=== PATIENT | male | born 1950 | race African-American/Black ===

== ENCOUNTER 2016-05-05 11:29 | Inpatient (IN) | payer BC, OTHER ==
--- NOTE | ~2016-05-05 | OP ---
Record Of Operation [facility] [address] [place]. [address] NAME: NNACY JONAS : 50 STATUS : ADM IN [facility]#: [id number] AGE: 66 ADM/REG DATE : 05/05/16 MR#: [id number] REPORT SERV DATE: 05/06/16 DICTATED BY: SHAAN JOHNSTON DATE: 05/06/16 REPORT STATUS : Draft TRANSCRIBED BY: MODL DATE: 05/06/16 DATE OF PROCEDURE: 05/05/2016 SURGEON: Shaan Johnston MD TITLE OF OPERATION: Ileal conduit urinary diversion. PREOPERATIVE DIAGNOSES: 1. Urinary retention. 2. Neurogenic bladder. 3. Recurring episodes of sepsis of urinary origin. POSTOPERATIVE DIAGNOSES: 1. Urinary retention. 2. Neurogenic bladder. 3. Recurring episodes of sepsis of urinary origin. INDICATIONS: Mr. Jonsa is a 66-year-old male, who is paraplegic. He has a prior inflatable penile prosthesis, which had a bad infection requiring explantation. He had a urethral involvement. He has an SP tube. He gets chronic infections and has trouble with SP tube changes. He is here for urinary diversion. ANESTHESIA: General. COMPLICATIONS: None. IMPLANTS: 1. A 16-British SP tube as bladder drain. 2. Bilateral 8-British ureteral stents. 3. #19 NUVIA drain. SPECIMENS: None. NARRATIVE: The patient was brought to the operating room, identified by his wristband. General anesthesia was induced, and cefoxitin was given for preoperative antibiotics. He was placed in supine position and prepped and draped in sterile fashion. His urethral Lombardo catheter and SP tube were both removed. A lower midline incision was made from the pubic bone up to the umbilicus. This was deepened with electrocautery through the subcutaneous tissues down to the fascia. This fascia was sharply incised, and the rectus muscle was split in its midline. The abdominal cavity was entered, and the bowel was packed. A Bookwalter retractor was placed. The pelvis was notable for dense scarring and inflammatory changes due to his chronic SP tubes and infections. There was some adherence between the sigmoid colon and the bladder, which was sharply lysed without entering the sigmoid colon. On the left side, the medial umbilical ligament was identified, clipped, and divided. The ureter was dissected free. The distal ureter was clipped, it was marked with a 4-0 chromic suture and divided. Clear urine effluxed from the ureter. The ureter was then lysed Record Of Operation [place] [id number] [facility] [place]. [address] NAME: NANCY JONAS : 50 STATUS : ADM IN PAT#: [id number] AGE: 66 ADM/REG DATE : 05/05/16 MR#: [id number] REPORT SERV DATE: 05/06/16 DICTATED BY: SHAAN JOHNSTON DATE: 05/06/16 REPORT STATUS : Draft TRANSCRIBED BY: MILLY DATE: 05/06/16 approximately to give a sufficient length for the urinary diversion. Similarly, on the right side, the medial umbilical ligament was clipped and divided, the ureter was identified, the distal ureter was clipped with a clip, the ureter was marked with a 4-0 chromic suture and divided. Clear urine effluxed into the field. The ureter was lysed up to the pelvic brim. The ureter was then tunneled beneath the sigmoid mesentery to the right side. At this time, a 15 cm segment of ileum was identified approximately 20 cm from the ileocecal valve. The ileum was divided with a 75 mm VERO stapler proximally and distally. Care was taken to preserve excellent blood supply to the conduit. The bowel was then reanastomosed in a kdzr-nl-szpp fashion using first a 75 mm VERO stapler. 3-0 silk sutures were used to reinforce the staple line. The bowel was then closed with a 60 mm TA stapler. The staple line was buried with interrupted 3-0 Vicryl suture. The mesenteric trap was closed with interrupted 3-0 silk sutures. Next, the distal end of the conduit was opened with Bovie cautery. The conduit was irrigated clear of stool with irrigation. No enteric contents were spilled into the field. Next, the left ureter was identified on the right side of the body as previously placed. It was spatulated. A small hole was made in the base of the butt end of the conduit. The ureter was then anastomosed to the conduit with two running 4-0 Monocryl sutures. Prior to closure of the anastomosis, an 8-British ureteral stent was placed. It was tunneled out the distal end of the conduit. Similarly, on the right side, the ureter was widely spatulated. A small hole was made in the butt end of the conduit, and the suohdpet-ze-lmtfxwe anastomosis was performed with two running 4-0 Monocryl sutures, and 8-British ureteral stent was placed prior to closure of the anastomosis. The conduit was copiously irrigated and found to be completely watertight, there was no leakage of fluid. The premarked stoma site was then grasped with a Mariely grasper, and a circular incision was made through the skin and deepened down to the level of the fascia. A cruciate incision was made in the fascia. The conduit was then tunneled up through the belly of the rectus, out the fascia into the skin. The conduit was matured to the skin in a [place] fashion using 2-0 Vicryl suture. The wounds were copiously irrigated clear with normal saline. There was no ongoing bleeding. The fascia was closed with interrupted 0 Monocryl suture in a xmgrue-al-hxfkr fashion. The wound was again irrigated clear. The skin was stapled shut. A 16-British catheter was placed back into the bladder as a bladder drain. Prior to fascial closure, a #19 NUVIA drain was placed down into the pelvis. A Xeroform gauze and tape dressing was placed. A Biopatch was placed over the drain, which was sutured in place with a 2-0 Prolene suture. There were no complications. AKIL/MILLY Shaan Johnston MD / [id number] CC: Shaan Johnston MD
--- NOTE | ~2016-05-05 | DS ---
Discharge Summary [facility] [address] [place]. [address] NAME: NANCY JONAS : 50 STATUS : DIS IN PAT#: [id number] AGE: 66 ADM/REG DATE : 05/05/16 MR#: [id number] REPORT SERV DATE: 06/14/16 DICTATED BY: SHAAN JOHNSTON DATE: 06/14/16 REPORT STATUS : Draft TRANSCRIBED BY: MODL DATE: 06/14/16 ADMISSION DATE: 05/05/2016 DISCHARGE DATE: 05/26/2016 DISCHARGE DIAGNOSES: 1. Neurogenic bladder. 2. History of infected inflatable penile prosthesis, status post explantation with chronic perineal wounds. 3. History of recurring sepsis after SP tube changes. 4. History of neurogenic bladder and bowel. PROCEDURES: Open ileal conduit urinary diversion. DISCHARGE SUMMARY: Mr. Nancy Jonas is a 66-year-old male with a history of neurogenic bladder and neurogenic bowel. He did have a penile prosthesis placed for erectile dysfunction. This eventually became infected and was explanted by Dr. Contreras. For his neurogenic bladder, he had an SP tube placed. Unfortunately, he did have recurring sepsis with SP tube placement. Due to insurance changes, the patient finally came to me for definitive management. Given his options, he elected for ileal conduit urinary diversion to rid him of all tubes and catheters in his pelvis. On date of admission, the patient underwent the above-mentioned operation. He tolerated the procedure well. There were no complications. Postoperatively, the patient was transferred to the PACU and then to the floor in stable condition. During his operation, decision was made to leave his bladder intact and to not attempt to remove the reservoirs. I did not want his conduit exposed to infected material. His postoperative course was noted for severe abdominal distention and ileus. An NG tube was placed. I obtained a consultation from Dr. Haile Ferreira with General Surgery. He had a small-bowel followthrough which showed no evidence of obstruction. Eventually, he started having bowel movements. His NG tube was removed and his diet was advanced to regular diet. His NUVIA drain and ureteral stents placed during surgery were removed prior to discharge. His narendra were removed prior to discharge. Physical therapy consultations were obtained and recommendations were followed. On the day of discharge, the patient was deemed medically fit for discharge and he was discharged back to his [facility] facility. DISCHARGE INSTRUCTIONS: Please see my preprinted discharge instructions. DISCHARGE MEDICATIONS: Please see the medicine reconciliation work sheet. FOLLOWUP: Please follow up with me in one month. AKIL/MILLY Shaan Johnston MD Discharge Summary [address] [address] NAME: NANCY JONAS : 50 STATUS : DIS IN PAT#: [id number] AGE: 66 ADM/REG DATE : 05/05/16 MR#: [id number] REPORT SERV DATE: 06/14/16 DICTATED BY: SHAAN JOHNSTON DATE: 06/14/16 REPORT STATUS : Draft TRANSCRIBED BY: MILLY DATE: 06/14/16 / [id number] CC: MD Evangelista Seay M.D.
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
[~2016-05-05 11:29] MED LIST: *UNABLE1; *UNABLE2; 8 HOUR650 MG PO; ACIDOPHILU2 PO; ACTOS30 PO; ACULAR OPH; ALAVERT10 MG PO; ALLEGRA PO; ALLEGRA180 PO; ALPHAGAN OPH; ALTA5 PO; AMARYL2 PO; ASAB PO; ASABAYER PO; ASAEC PO; ATV.5 PO; AVANDIA8 MG PO; BISR; BIST PO; C5 PO; CANNOT RECALL MEDS; CHOLESTERO XX; CILOXAN OPH; COMBIGAN OPH OPH; COMBIGAN0.2 MG/0.5 OPH; DAKINS SOLUTION TOP; DESITIN TOP; DIABET2.5 PO; DITRO5 PO; DSS PO; ECONOPRED PL1 % OPH; FERRETTS325 MG PO; FERROUS SULF325 M1 PO; FESO4 PO; FEXOFENADINE60 MG OR; FLONASE NAS; FLONASE NASAL SPRAY NAS; FLORASTOR250 MG PO; FORTAMET500 MG PO; GLUCOPHXR PO; GLUCOPHXR7 PO; GLUCXL2.5 PO; HEPA50006 SC; HYDROCHLOROT12.5 MG OR; HYDROCHLOROT12.5 MG PO; IMOD PO; INSULIN; INSULIN REGULAR SC; IRON325 MG PO; JANTOVEN4 MG PO; JANUVIA100 MG PO; KLOR-CON 88 MEQ PO; L20 PO; L40 PO; LANTUS; LANTUS SC; LEVEMIR SC; LIOR10; LIOR10 PO; LIPITOR10 PO; LISINOPRIL40 MG PO; LOM PO; LOP25 PO; LOPID6 PO; LORTAB10 PO; LOTRIMIN AF21 EX; LYRICA75 PO; MELA3 PO; MELATONIN5 M1 PO; METFORMIN PO; MIRALAXPKT PO; MOMUD PO; MULTI-VIT HP PO; MULTIVIT/MIN PO; NEUR300 PO; NORCO; NORCO1 TA1 PO; NORV10 PO; NOVOLOG; NOVOLOG SC; NYSTOP100000 MG TOP; PEP20 PO; PEPTO BISMOL LIQ1 ML PO; PERCOCET 7.5/321 TAB PO; PREDMILDOP OPH; PRENAVITE PO; PRILO PO; PROTEIN SUPPLEMENT; PROTONIX PO; REM15 PO; SENNA PO; SOLUMEDROL; SOMATAB PO; T PO; TIMOLOL OPH; ULTRAM50 PO; V5 PO; VALIUM10 MG PO; VENELEX; VIB100 PO; ZANTAC 150 PO; ZOCOR20 PO; ZOCOR40 PO; ZOCOR80 MG PO; [UNRECOGNIZED DRUG - OTHER]; [UNRECOGNIZED DRUG - OTHER] PO
[2016-05-05 19:49] LABS: BASOPHILS 0.1 %; BASOPHILS ABSOLUTE 0.02 10/3/uL (0.0-0.16); EOSINOPHILS 0.4 %; EOSINOPHILS ABSOLUTE 0.06 10/3/uL (0.0-0.53); IMMATURE GRANULOCYTES 0.2 %; IMMATURE GRANULOCYTES ABSOLUTE 0.03 10/3/uL (0.0-0.11); LYMPHOCYTES 7.9 %; LYMPHOCYTES ABSOLUTE 1.06 10/3/uL (0.67-4.30); MEAN CORPUS HGB CONC 33.6 g/dL (32.0-36.0); MEAN CORPUSCULAR HEMOGLOB 29.5 pg (26.0-34.0); MEAN CORPUSCULAR VOLUME 87.7 fL (80-100); MEAN PLATELET VOLUME 9.6 fL (9.2-13.0); MONOCYTES 2.7 %; MONOCYTES ABSOLUTE 0.36 10/3/uL (0.21-1.20); NEUTROPHILS 88.7 %; NEUTROPHILS ABSOLUTE 11.91 10/3/uL (2.02-8.40); RBC DISTRIBUTION WIDTH 15.6 % (12.0-16.0); WHITE BLOOD CELLS 13.4 10/3/uL (4.5-10.5)
[2016-05-05 19:54] LABS: CALCIUM, SERUM 8.6 MG/DL (8.5-10.4); CHLORIDE, SERUM 107 MMOL/L (96-112); CO2 (CARBON DIOXIDE) 21 MMOL/L (24-34); HEMATOCRIT 34.2 % (40.0-51.0); HEMOGLOBIN 11.5 g/dL (13.6-17.8); MANUAL DIFF NO %; PLATELET COUNT 346 10/3/uL (150-400); SODIUM, SERUM 140 MMOL/L (135-148)
[2016-05-05 19:56] LABS: BUN (BLOOD UREA NITROGEN) 21 MG/DL (6-23); CREATININE 1.48 MG/DL (0.70-1.30); GFR AFRICAN AMERICAN 56 ML/MIN (>=60); GFR NON AFRICAN AMERICAN 49 ML/MIN (>=60); GLUCOSE, SERUM 186 MG/DL (60-99)
[2016-05-06 07:45] LABS: BASOPHILS 0.1 %; BASOPHILS ABSOLUTE 0.01 10/3/uL (0.0-0.16); EOSINOPHILS 0 %; HEMOGLOBIN 9.4 g/dL (13.6-17.8); IMMATURE GRANULOCYTES 0.3 %; IMMATURE GRANULOCYTES ABSOLUTE 0.04 10/3/uL (0.0-0.11); LYMPHOCYTES 7.8 %; LYMPHOCYTES ABSOLUTE 1.19 10/3/uL (0.67-4.30); MEAN CORPUS HGB CONC 32.1 g/dL (32.0-36.0); MEAN CORPUSCULAR HEMOGLOB 28.7 pg (26.0-34.0); MEAN CORPUSCULAR VOLUME 89.6 fL (80-100); MEAN PLATELET VOLUME 9.7 fL (9.2-13.0); MONOCYTES 7.4 %; MONOCYTES ABSOLUTE 1.12 10/3/uL (0.21-1.20); NEUTROPHILS 84.4 %; NEUTROPHILS ABSOLUTE 12.85 10/3/uL (2.02-8.40); PLATELET COUNT 305 10/3/uL (150-400); RBC DISTRIBUTION WIDTH 15.7 % (12.0-16.0); RED CELL COUNT 3.27 10/6/uL (4.7-6.1); WHITE BLOOD CELLS 15.2 10/3/uL (4.5-10.5)
[2016-05-06 07:48] LABS: HEMATOCRIT 29.3 % (40.0-51.0); MANUAL DIFF NO %
[2016-05-06 07:49] LABS: BUN (BLOOD UREA NITROGEN) 19 MG/DL (6-23); CALCIUM, SERUM 8.4 MG/DL (8.5-10.4); CHLORIDE, SERUM 105 MMOL/L (96-112); CO2 (CARBON DIOXIDE) 23 MMOL/L (24-34); CREATININE 1.02 MG/DL (0.70-1.30); GFR AFRICAN AMERICAN 88 ML/MIN (>=60); GFR NON AFRICAN AMERICAN 76 ML/MIN (>=60); GLUCOSE, SERUM 164 MG/DL (60-99); POTASSIUM, SERUM 4.4 MMOL/L (3.5-5.3); SODIUM, SERUM 141 MMOL/L (135-148)
[2016-05-07 06:13] LABS: BASOPHILS 0.3 %; BASOPHILS ABSOLUTE 0.03 10/3/uL (0.0-0.16); HEMOGLOBIN 8.3 g/dL (13.6-17.8); IMMATURE GRANULOCYTES 0.1 %; IMMATURE GRANULOCYTES ABSOLUTE 0.01 10/3/uL (0.0-0.11); LYMPHOCYTES 22.4 %; LYMPHOCYTES ABSOLUTE 2.16 10/3/uL (0.67-4.30); MEAN CORPUS HGB CONC 32.5 g/dL (32.0-36.0); MEAN CORPUSCULAR VOLUME 89.2 fL (80-100); MEAN PLATELET VOLUME 9.4 fL (9.2-13.0); MONOCYTES 7.7 %; MONOCYTES ABSOLUTE 0.74 10/3/uL (0.21-1.20); NEUTROPHILS 68.5 %; NEUTROPHILS ABSOLUTE 6.59 10/3/uL (2.02-8.40); PLATELET COUNT 268 10/3/uL (150-400); RBC DISTRIBUTION WIDTH 15.9 % (12.0-16.0); RED CELL COUNT 2.86 10/6/uL (4.7-6.1); WHITE BLOOD CELLS 9.6 10/3/uL (4.5-10.5)
[2016-05-07 06:16] LABS: HEMATOCRIT 25.5 % (40.0-51.0); MANUAL DIFF NO %
[2016-05-07 06:30] LABS: CALCIUM, SERUM 8.5 MG/DL (8.5-10.4); CHLORIDE, SERUM 104 MMOL/L (96-112); CO2 (CARBON DIOXIDE) 21 MMOL/L (24-34); CREATININE 0.66 MG/DL (0.70-1.30); GFR AFRICAN AMERICAN 117 ML/MIN (>=60); GFR NON AFRICAN AMERICAN 101 ML/MIN (>=60); POTASSIUM, SERUM 4.5 MMOL/L (3.5-5.3); SODIUM, SERUM 137 MMOL/L (135-148)
[2016-05-07 06:31] LABS: BUN (BLOOD UREA NITROGEN) 15 MG/DL (6-23); GLUCOSE, SERUM 122 MG/DL (60-99)
[2016-05-09 07:24] LABS: BASOPHILS 0.2 %; BASOPHILS ABSOLUTE 0.03 10/3/uL (0.0-0.16); EOSINOPHILS 1.3 %; EOSINOPHILS ABSOLUTE 0.17 10/3/uL (0.0-0.53); IMMATURE GRANULOCYTES 0.4 %; IMMATURE GRANULOCYTES ABSOLUTE 0.05 10/3/uL (0.0-0.11); LYMPHOCYTES 18.6 %; LYMPHOCYTES ABSOLUTE 2.37 10/3/uL (0.67-4.30); MEAN CORPUS HGB CONC 33.1 g/dL (32.0-36.0); MEAN CORPUSCULAR VOLUME 87.5 fL (80-100); MEAN PLATELET VOLUME 9.7 fL (9.2-13.0); MONOCYTES ABSOLUTE 0.76 10/3/uL (0.21-1.20); NEUTROPHILS 73.5 %; NEUTROPHILS ABSOLUTE 9.35 10/3/uL (2.02-8.40); RBC DISTRIBUTION WIDTH 15.4 % (12.0-16.0); WHITE BLOOD CELLS 12.7 10/3/uL (4.5-10.5)
[2016-05-09 07:30] LABS: HEMATOCRIT 30.2 % (40.0-51.0); MANUAL DIFF NO %; PLATELET COUNT 389 10/3/uL (150-400); RED CELL COUNT 3.45 10/6/uL (4.7-6.1)
[2016-05-09 07:53] LABS: CALCIUM, SERUM 9.2 MG/DL (8.5-10.4); CHLORIDE, SERUM 101 MMOL/L (96-112); CO2 (CARBON DIOXIDE) 21 MMOL/L (24-34); POTASSIUM, SERUM 4.8 MMOL/L (3.5-5.3); SODIUM, SERUM 135 MMOL/L (135-148)
[2016-05-09 07:54] LABS: BUN (BLOOD UREA NITROGEN) 22 MG/DL (6-23); CREATININE 1.41 MG/DL (0.70-1.30); GFR AFRICAN AMERICAN 60 ML/MIN (>=60); GFR NON AFRICAN AMERICAN 52 ML/MIN (>=60); GLUCOSE, SERUM 151 MG/DL (60-99)
[2016-05-10 06:41] LABS: CHLORIDE, SERUM 106 MMOL/L (96-112); CO2 (CARBON DIOXIDE) 20 MMOL/L (24-34); POTASSIUM, SERUM 4.5 MMOL/L (3.5-5.3); SODIUM, SERUM 137 MMOL/L (135-148)
[2016-05-10 06:42] LABS: BUN (BLOOD UREA NITROGEN) 17 MG/DL (6-23); CALCIUM, SERUM 8.1 MG/DL (8.5-10.4); CREATININE 0.65 MG/DL (0.70-1.30); GFR AFRICAN AMERICAN 118 ML/MIN (>=60); GFR NON AFRICAN AMERICAN 101 ML/MIN (>=60); GLUCOSE, SERUM 114 MG/DL (60-99)
[2016-05-10 07:06] LABS: PLATELET ESTIMATE SLT INC (ADEQUATE); RBC MORPHOLOGY NORM (NORMAL)
[2016-05-10 07:22] LABS: BASOPHILS 0.4 %; BASOPHILS ABSOLUTE 0.04 10/3/uL (0.0-0.16); EOSINOPHILS 3.9 %; EOSINOPHILS ABSOLUTE 0.41 10/3/uL (0.0-0.53); HEMATOCRIT 27.6 % (40.0-51.0); HEMOGLOBIN 9.1 g/dL (13.6-17.8); IMMATURE GRANULOCYTES 0.3 %; IMMATURE GRANULOCYTES ABSOLUTE 0.03 10/3/uL (0.0-0.11); LYMPHOCYTES 19.8 %; LYMPHOCYTES ABSOLUTE 2.07 10/3/uL (0.67-4.30); MANUAL DIFF NO %; MEAN CORPUSCULAR HEMOGLOB 29.5 pg (26.0-34.0); MEAN CORPUSCULAR VOLUME 89.6 fL (80-100); MEAN PLATELET VOLUME 9.2 fL (9.2-13.0); MONOCYTES ABSOLUTE 0.63 10/3/uL (0.21-1.20); NEUTROPHILS 69.6 %; NEUTROPHILS ABSOLUTE 7.26 10/3/uL (2.02-8.40); PLATELET COUNT 404 10/3/uL (150-400); RBC DISTRIBUTION WIDTH 15.3 % (12.0-16.0); RED CELL COUNT 3.08 10/6/uL (4.7-6.1); WHITE BLOOD CELLS 10.4 10/3/uL (4.5-10.5)
[2016-05-11 07:15] LABS: BASOPHILS 0.7 %; BASOPHILS ABSOLUTE 0.08 10/3/uL (0.0-0.16); EOSINOPHILS 2.9 %; EOSINOPHILS ABSOLUTE 0.33 10/3/uL (0.0-0.53); HEMATOCRIT 30.3 % (40.0-51.0); HEMOGLOBIN 9.8 g/dL (13.6-17.8); IMMATURE GRANULOCYTES 0.3 %; IMMATURE GRANULOCYTES ABSOLUTE 0.03 10/3/uL (0.0-0.11); LYMPHOCYTES 17.2 %; LYMPHOCYTES ABSOLUTE 1.94 10/3/uL (0.67-4.30); MANUAL DIFF NO %; MEAN CORPUS HGB CONC 32.3 g/dL (32.0-36.0); MEAN CORPUSCULAR HEMOGLOB 29.5 pg (26.0-34.0); MEAN CORPUSCULAR VOLUME 91.3 fL (80-100); MEAN PLATELET VOLUME 8.9 fL (9.2-13.0); MONOCYTES 4.2 %; MONOCYTES ABSOLUTE 0.47 10/3/uL (0.21-1.20); NEUTROPHILS 74.7 %; NEUTROPHILS ABSOLUTE 8.46 10/3/uL (2.02-8.40); PLATELET COUNT 429 10/3/uL (150-400); RBC DISTRIBUTION WIDTH 15.1 % (12.0-16.0); RED CELL COUNT 3.32 10/6/uL (4.7-6.1); WHITE BLOOD CELLS 11.3 10/3/uL (4.5-10.5)
[2016-05-11 07:28] LABS: BUN (BLOOD UREA NITROGEN) 14 MG/DL (6-23); CALCIUM, SERUM 8.9 MG/DL (8.5-10.4); CHLORIDE, SERUM 106 MMOL/L (96-112); CO2 (CARBON DIOXIDE) 17 MMOL/L (24-34); CREATININE 0.57 MG/DL (0.70-1.30); GFR AFRICAN AMERICAN 124 ML/MIN (>=60); GFR NON AFRICAN AMERICAN 107 ML/MIN (>=60); GLUCOSE, SERUM 89 MG/DL (60-99); POTASSIUM, SERUM 4.3 MMOL/L (3.5-5.3); SODIUM, SERUM 139 MMOL/L (135-148)
[2016-05-12 06:55] LABS: BASOPHILS 0.7 %; BASOPHILS ABSOLUTE 0.06 10/3/uL (0.0-0.16); EOSINOPHILS 4.8 %; EOSINOPHILS ABSOLUTE 0.44 10/3/uL (0.0-0.53); HEMATOCRIT 30.5 % (40.0-51.0); HEMOGLOBIN 9.8 g/dL (13.6-17.8); IMMATURE GRANULOCYTES 0.2 %; IMMATURE GRANULOCYTES ABSOLUTE 0.02 10/3/uL (0.0-0.11); LYMPHOCYTES 25.4 %; LYMPHOCYTES ABSOLUTE 2.32 10/3/uL (0.67-4.30); MEAN CORPUS HGB CONC 32.1 g/dL (32.0-36.0); MEAN CORPUSCULAR HEMOGLOB 28.9 pg (26.0-34.0); MONOCYTES 6.3 %; MONOCYTES ABSOLUTE 0.57 10/3/uL (0.21-1.20); NEUTROPHILS 62.6 %; NEUTROPHILS ABSOLUTE 5.71 10/3/uL (2.02-8.40); PLATELET COUNT 435 10/3/uL (150-400); RBC DISTRIBUTION WIDTH 14.9 % (12.0-16.0); RED CELL COUNT 3.39 10/6/uL (4.7-6.1); WHITE BLOOD CELLS 9.1 10/3/uL (4.5-10.5)
[2016-05-12 06:57] LABS: MANUAL DIFF NO %
[2016-05-12 07:07] LABS: CHLORIDE, SERUM 104 MMOL/L (96-112); CO2 (CARBON DIOXIDE) 20 MMOL/L (24-34); CREATININE 0.57 MG/DL (0.70-1.30); GFR AFRICAN AMERICAN 124 ML/MIN (>=60); GFR NON AFRICAN AMERICAN 107 ML/MIN (>=60); GLUCOSE, SERUM 98 MG/DL (60-99); POTASSIUM, SERUM 4.2 MMOL/L (3.5-5.3); SODIUM, SERUM 136 MMOL/L (135-148)
[2016-05-12 07:09] LABS: BUN (BLOOD UREA NITROGEN) 10 MG/DL (6-23)
[2016-05-13 07:46] LABS: BASOPHILS 0.3 %; BASOPHILS ABSOLUTE 0.03 10/3/uL (0.0-0.16); BUN (BLOOD UREA NITROGEN) 13 MG/DL (6-23); CALCIUM, SERUM 8.7 MG/DL (8.5-10.4); CHLORIDE, SERUM 102 MMOL/L (96-112); CO2 (CARBON DIOXIDE) 22 MMOL/L (24-34); CREATININE 0.55 MG/DL (0.70-1.30); EOSINOPHILS 2.4 %; EOSINOPHILS ABSOLUTE 0.23 10/3/uL (0.0-0.53); GFR AFRICAN AMERICAN 126 ML/MIN (>=60); GFR NON AFRICAN AMERICAN 109 ML/MIN (>=60); GLUCOSE, SERUM 99 MG/DL (60-99); HEMATOCRIT 27.8 % (40.0-51.0); HEMOGLOBIN 9.1 g/dL (13.6-17.8); IMMATURE GRANULOCYTES 0.3 %; IMMATURE GRANULOCYTES ABSOLUTE 0.03 10/3/uL (0.0-0.11); LYMPHOCYTES 24.7 %; LYMPHOCYTES ABSOLUTE 2.39 10/3/uL (0.67-4.30); MEAN CORPUS HGB CONC 32.7 g/dL (32.0-36.0); MEAN CORPUSCULAR HEMOGLOB 28.3 pg (26.0-34.0); MEAN PLATELET VOLUME 9.5 fL (9.2-13.0); MONOCYTES 6.3 %; MONOCYTES ABSOLUTE 0.61 10/3/uL (0.21-1.20); NEUTROPHILS ABSOLUTE 6.37 10/3/uL (2.02-8.40); PLATELET COUNT 502 10/3/uL (150-400); RBC DISTRIBUTION WIDTH 14.9 % (12.0-16.0); RED CELL COUNT 3.21 10/6/uL (4.7-6.1); SODIUM, SERUM 137 MMOL/L (135-148); WHITE BLOOD CELLS 9.7 10/3/uL (4.5-10.5)
[2016-05-13 07:47] LABS: MANUAL DIFF NO %; MEAN CORPUSCULAR VOLUME 86.6 fL (80-100)
[2016-05-16 06:26] LABS: BASOPHILS 0.6 %; BASOPHILS ABSOLUTE 0.05 10/3/uL (0.0-0.16); EOSINOPHILS 3.3 %; EOSINOPHILS ABSOLUTE 0.26 10/3/uL (0.0-0.53); HEMOGLOBIN 9.5 g/dL (13.6-17.8); IMMATURE GRANULOCYTES 0.3 %; IMMATURE GRANULOCYTES ABSOLUTE 0.02 10/3/uL (0.0-0.11); LYMPHOCYTES 24.4 %; MEAN CORPUS HGB CONC 31.7 g/dL (32.0-36.0); MEAN CORPUSCULAR HEMOGLOB 28.6 pg (26.0-34.0); MEAN PLATELET VOLUME 9.5 fL (9.2-13.0); NEUTROPHILS 62.4 %; NEUTROPHILS ABSOLUTE 4.85 10/3/uL (2.02-8.40); PLATELET COUNT 415 10/3/uL (150-400); RED CELL COUNT 3.32 10/6/uL (4.7-6.1); WHITE BLOOD CELLS 7.8 10/3/uL (4.5-10.5)
[2016-05-16 06:29] LABS: MANUAL DIFF NO %; MEAN CORPUSCULAR VOLUME 90.4 fL (80-100)
[2016-05-16 06:48] LABS: BUN (BLOOD UREA NITROGEN) 24 MG/DL (6-23); CALCIUM, SERUM 8.9 MG/DL (8.5-10.4); CHLORIDE, SERUM 103 MMOL/L (96-112); CO2 (CARBON DIOXIDE) 16 MMOL/L (24-34); CREATININE 0.94 MG/DL (0.70-1.30); GFR AFRICAN AMERICAN 98 ML/MIN (>=60); GFR NON AFRICAN AMERICAN 84 ML/MIN (>=60); GLUCOSE, SERUM 113 MG/DL (60-99); POTASSIUM, SERUM 4.3 MMOL/L (3.5-5.3); SODIUM, SERUM 134 MMOL/L (135-148)
[2016-05-16 12:56] LABS: BUN (BLOOD UREA NITROGEN) 25 MG/DL (6-23); CALCIUM, SERUM 8.9 MG/DL (8.5-10.4); CHLORIDE, SERUM 101 MMOL/L (96-112); CREATININE 1.09 MG/DL (0.70-1.30); GFR AFRICAN AMERICAN 82 ML/MIN (>=60); GFR NON AFRICAN AMERICAN 70 ML/MIN (>=60); GLUCOSE, SERUM 100 MG/DL (60-99); POTASSIUM, SERUM 4.4 MMOL/L (3.5-5.3); SODIUM, SERUM 135 MMOL/L (135-148)
[2016-05-16 12:57] LABS: CO2 (CARBON DIOXIDE) 26 MMOL/L (24-34)
[2016-05-17 09:00] LABS: BASOPHILS 0.3 %; BASOPHILS ABSOLUTE 0.03 10/3/uL (0.0-0.16); EOSINOPHILS 1.7 %; EOSINOPHILS ABSOLUTE 0.17 10/3/uL (0.0-0.53); HEMATOCRIT 30.6 % (40.0-51.0); IMMATURE GRANULOCYTES 0.2 %; IMMATURE GRANULOCYTES ABSOLUTE 0.02 10/3/uL (0.0-0.11); LYMPHOCYTES 16.2 %; LYMPHOCYTES ABSOLUTE 1.66 10/3/uL (0.67-4.30); MANUAL DIFF NO %; MEAN CORPUS HGB CONC 32.7 g/dL (32.0-36.0); MEAN CORPUSCULAR HEMOGLOB 28.5 pg (26.0-34.0); MEAN CORPUSCULAR VOLUME 87.2 fL (80-100); MEAN PLATELET VOLUME 9.3 fL (9.2-13.0); MONOCYTES 8.3 %; MONOCYTES ABSOLUTE 0.85 10/3/uL (0.21-1.20); NEUTROPHILS 73.3 %; NEUTROPHILS ABSOLUTE 7.54 10/3/uL (2.02-8.40); PLATELET COUNT 529 10/3/uL (150-400); RBC DISTRIBUTION WIDTH 14.8 % (12.0-16.0); RED CELL COUNT 3.51 10/6/uL (4.7-6.1); WHITE BLOOD CELLS 10.3 10/3/uL (4.5-10.5)
[2016-05-17 09:15] LABS: BUN (BLOOD UREA NITROGEN) 23 MG/DL (6-23); CALCIUM, SERUM 8.2 MG/DL (8.5-10.4); CHLORIDE, SERUM 106 MMOL/L (96-112); CREATININE 0.94 MG/DL (0.70-1.30); GFR AFRICAN AMERICAN 98 ML/MIN (>=60); GFR NON AFRICAN AMERICAN 84 ML/MIN (>=60); GLUCOSE, SERUM 85 MG/DL (60-99); PHOSPHORUS, SERUM 2.7 MG/DL (2.5-4.5); POTASSIUM, SERUM 4.4 MMOL/L (3.5-5.3); SODIUM, SERUM 139 MMOL/L (135-148)
[2016-05-17 09:16] LABS: CO2 (CARBON DIOXIDE) 21 MMOL/L (24-34)
[2016-05-18 04:58] LABS: BASOPHILS 0.3 %; BASOPHILS ABSOLUTE 0.03 10/3/uL (0.0-0.16); EOSINOPHILS 0.9 %; EOSINOPHILS ABSOLUTE 0.09 10/3/uL (0.0-0.53); HEMOGLOBIN 8.4 g/dL (13.6-17.8); IMMATURE GRANULOCYTES 0.3 %; IMMATURE GRANULOCYTES ABSOLUTE 0.03 10/3/uL (0.0-0.11); LYMPHOCYTES 17.6 %; LYMPHOCYTES ABSOLUTE 1.86 10/3/uL (0.67-4.30); MEAN CORPUS HGB CONC 33.2 g/dL (32.0-36.0); MEAN CORPUSCULAR HEMOGLOB 29.4 pg (26.0-34.0); MEAN CORPUSCULAR VOLUME 88.5 fL (80-100); MEAN PLATELET VOLUME 9.1 fL (9.2-13.0); MONOCYTES ABSOLUTE 0.95 10/3/uL (0.21-1.20); NEUTROPHILS 71.9 %; NEUTROPHILS ABSOLUTE 7.58 10/3/uL (2.02-8.40); PLATELET COUNT 471 10/3/uL (150-400); RBC DISTRIBUTION WIDTH 14.7 % (12.0-16.0); RED CELL COUNT 2.86 10/6/uL (4.7-6.1); WHITE BLOOD CELLS 10.5 10/3/uL (4.5-10.5)
[2016-05-18 05:01] LABS: HEMATOCRIT 25.3 % (40.0-51.0); MANUAL DIFF NO %
[2016-05-18 05:12] LABS: BUN (BLOOD UREA NITROGEN) 22 MG/DL (6-23); CHLORIDE, SERUM 107 MMOL/L (96-112); CO2 (CARBON DIOXIDE) 21 MMOL/L (24-34); CREATININE 0.73 MG/DL (0.70-1.30); GFR AFRICAN AMERICAN 112 ML/MIN (>=60); GFR NON AFRICAN AMERICAN 97 ML/MIN (>=60); PHOSPHORUS, SERUM 2.6 MG/DL (2.5-4.5); POTASSIUM, SERUM 3.8 MMOL/L (3.5-5.3); SODIUM, SERUM 140 MMOL/L (135-148); TRIGLYCERIDE 71 MG/DL (< 150)
[2016-05-18 05:14] LABS: GLUCOSE, SERUM 130 MG/DL (60-99)
[2016-05-18 05:32] LABS: PREALBUMIN 7.8 MG/DL (17.0-43.0)
[2016-05-19 06:52] LABS: BASOPHILS 0.2 %; BASOPHILS ABSOLUTE 0.02 10/3/uL (0.0-0.16); EOSINOPHILS 2.4 %; EOSINOPHILS ABSOLUTE 0.25 10/3/uL (0.0-0.53); HEMATOCRIT 24.2 % (40.0-51.0); HEMOGLOBIN 7.9 g/dL (13.6-17.8); IMMATURE GRANULOCYTES 0.2 %; IMMATURE GRANULOCYTES ABSOLUTE 0.02 10/3/uL (0.0-0.11); LYMPHOCYTES 19.7 %; LYMPHOCYTES ABSOLUTE 2.05 10/3/uL (0.67-4.30); MEAN CORPUS HGB CONC 32.6 g/dL (32.0-36.0); MEAN PLATELET VOLUME 9.2 fL (9.2-13.0); MONOCYTES 11.1 %; MONOCYTES ABSOLUTE 1.15 10/3/uL (0.21-1.20); NEUTROPHILS 66.4 %; NEUTROPHILS ABSOLUTE 6.91 10/3/uL (2.02-8.40); PLATELET COUNT 469 10/3/uL (150-400); RBC DISTRIBUTION WIDTH 14.7 % (12.0-16.0); RED CELL COUNT 2.82 10/6/uL (4.7-6.1); WHITE BLOOD CELLS 10.4 10/3/uL (4.5-10.5)
[2016-05-19 06:53] LABS: MANUAL DIFF NO %; MEAN CORPUSCULAR VOLUME 85.8 fL (80-100)
[2016-05-19 06:57] LABS: CALCIUM, SERUM 8.2 MG/DL (8.5-10.4); CHLORIDE, SERUM 105 MMOL/L (96-112); CO2 (CARBON DIOXIDE) 24 MMOL/L (24-34); CREATININE 0.76 MG/DL (0.70-1.30); GFR AFRICAN AMERICAN 110 ML/MIN (>=60); GFR NON AFRICAN AMERICAN 95 ML/MIN (>=60); PHOSPHORUS, SERUM 2.1 MG/DL (2.5-4.5); POTASSIUM, SERUM 3.8 MMOL/L (3.5-5.3); SODIUM, SERUM 139 MMOL/L (135-148)
[2016-05-19 07:01] LABS: BUN (BLOOD UREA NITROGEN) 28 MG/DL (6-23); GLUCOSE, SERUM 184 MG/DL (60-99)
[2016-05-20 06:38] LABS: BASOPHILS 0.6 %; BASOPHILS ABSOLUTE 0.06 10/3/uL (0.0-0.16); EOSINOPHILS ABSOLUTE 0.38 10/3/uL (0.0-0.53); HEMATOCRIT 26.3 % (40.0-51.0); HEMOGLOBIN 8.7 g/dL (13.6-17.8); IMMATURE GRANULOCYTES 0.3 %; IMMATURE GRANULOCYTES ABSOLUTE 0.03 10/3/uL (0.0-0.11); LYMPHOCYTES 20.7 %; LYMPHOCYTES ABSOLUTE 1.95 10/3/uL (0.67-4.30); MEAN CORPUS HGB CONC 33.1 g/dL (32.0-36.0); MEAN CORPUSCULAR HEMOGLOB 29.4 pg (26.0-34.0); MONOCYTES 9.8 %; MONOCYTES ABSOLUTE 0.92 10/3/uL (0.21-1.20); NEUTROPHILS 64.6 %; NEUTROPHILS ABSOLUTE 6.06 10/3/uL (2.02-8.40); PLATELET COUNT 485 10/3/uL (150-400); RBC DISTRIBUTION WIDTH 14.9 % (12.0-16.0); RED CELL COUNT 2.96 10/6/uL (4.7-6.1); WHITE BLOOD CELLS 9.4 10/3/uL (4.5-10.5)
[2016-05-20 06:39] LABS: MANUAL DIFF NO %; MEAN CORPUSCULAR VOLUME 88.9 fL (80-100)
[2016-05-20 06:50] LABS: BUN (BLOOD UREA NITROGEN) 30 MG/DL (6-23); CALCIUM, SERUM 8.2 MG/DL (8.5-10.4); CHLORIDE, SERUM 109 MMOL/L (96-112); CO2 (CARBON DIOXIDE) 23 MMOL/L (24-34); CREATININE 0.76 MG/DL (0.70-1.30); GFR AFRICAN AMERICAN 110 ML/MIN (>=60); GFR NON AFRICAN AMERICAN 95 ML/MIN (>=60); GLUCOSE, SERUM 211 MG/DL (60-99); POTASSIUM, SERUM 4.4 MMOL/L (3.5-5.3); SODIUM, SERUM 142 MMOL/L (135-148)
[2016-05-21 04:42] LABS: BUN (BLOOD UREA NITROGEN) 30 MG/DL (6-23); CALCIUM, SERUM 8.7 MG/DL (8.5-10.4); CHLORIDE, SERUM 111 MMOL/L (96-112); CO2 (CARBON DIOXIDE) 22 MMOL/L (24-34); CREATININE 0.77 MG/DL (0.70-1.30); GFR AFRICAN AMERICAN 110 ML/MIN (>=60); GFR NON AFRICAN AMERICAN 95 ML/MIN (>=60); GLUCOSE, SERUM 215 MG/DL (60-99); PHOSPHORUS, SERUM 2.4 MG/DL (2.5-4.5); POTASSIUM, SERUM 4.4 MMOL/L (3.5-5.3); SODIUM, SERUM 143 MMOL/L (135-148)
[2016-05-22 06:32] LABS: CALCIUM, SERUM 9.2 MG/DL (8.5-10.4); CHLORIDE, SERUM 112 MMOL/L (96-112); CO2 (CARBON DIOXIDE) 23 MMOL/L (24-34); CREATININE 0.85 MG/DL (0.70-1.30); GFR AFRICAN AMERICAN 105 ML/MIN (>=60); GFR NON AFRICAN AMERICAN 91 ML/MIN (>=60); POTASSIUM, SERUM 4.3 MMOL/L (3.5-5.3); SODIUM, SERUM 145 MMOL/L (135-148)
[2016-05-22 06:35] LABS: BUN (BLOOD UREA NITROGEN) 39 MG/DL (6-23); GLUCOSE, SERUM 271 MG/DL (60-99); PHOSPHORUS, SERUM 3.3 MG/DL (2.5-4.5)
[2016-05-23 06:30] LABS: BASOPHILS 0.5 %; BASOPHILS ABSOLUTE 0.06 10/3/uL (0.0-0.16); EOSINOPHILS 4.5 %; EOSINOPHILS ABSOLUTE 0.57 10/3/uL (0.0-0.53); HEMATOCRIT 26.5 % (40.0-51.0); HEMOGLOBIN 8.3 g/dL (13.6-17.8); IMMATURE GRANULOCYTES 1.6 %; IMMATURE GRANULOCYTES ABSOLUTE 0.21 10/3/uL (0.0-0.11); LYMPHOCYTES 19.8 %; LYMPHOCYTES ABSOLUTE 2.52 10/3/uL (0.67-4.30); MEAN CORPUSCULAR HEMOGLOB 28.4 pg (26.0-34.0); MEAN CORPUSCULAR VOLUME 90.8 fL (80-100); MEAN PLATELET VOLUME 9.3 fL (9.2-13.0); MONOCYTES 7.5 %; MONOCYTES ABSOLUTE 0.95 10/3/uL (0.21-1.20); NEUTROPHILS 66.1 %; NEUTROPHILS ABSOLUTE 8.43 10/3/uL (2.02-8.40); PLATELET COUNT 547 10/3/uL (150-400); RBC DISTRIBUTION WIDTH 15.6 % (12.0-16.0); RED CELL COUNT 2.92 10/6/uL (4.7-6.1); WHITE BLOOD CELLS 12.7 10/3/uL (4.5-10.5)
[2016-05-23 06:31] LABS: MANUAL DIFF NO %; MEAN CORPUS HGB CONC 31.3 g/dL (32.0-36.0)
[2016-05-23 06:40] LABS: CHLORIDE, SERUM 112 MMOL/L (96-112); CO2 (CARBON DIOXIDE) 22 MMOL/L (24-34); CREATININE 0.92 MG/DL (0.70-1.30); GFR AFRICAN AMERICAN 100 ML/MIN (>=60); GFR NON AFRICAN AMERICAN 86 ML/MIN (>=60); GLUCOSE, SERUM 320 MG/DL (60-99); PHOSPHORUS, SERUM 2.8 MG/DL (2.5-4.5); POTASSIUM, SERUM 4.1 MMOL/L (3.5-5.3); SODIUM, SERUM 144 MMOL/L (135-148)
[2016-05-23 06:42] LABS: BUN (BLOOD UREA NITROGEN) 45 MG/DL (6-23)
[2016-05-23 10:40] LABS: ASCORBIC ACID (UR NOT ORDER) NEG (NEG); BILIRUBIN, URINE NEGATIVE (NEG); KETONE, URINE NEGATIVE (NEG); LEUKOCYTE ESTERASE(NOT OR LARGE (NEG); WBC (NOT ORDERED) (RFLEX) > 182 (0-5)
[2016-05-24 06:30] LABS: BASOPHILS 0.8 %; BASOPHILS ABSOLUTE 0.11 10/3/uL (0.0-0.16); EOSINOPHILS 4.4 %; EOSINOPHILS ABSOLUTE 0.58 10/3/uL (0.0-0.53); HEMATOCRIT 26.8 % (40.0-51.0); HEMOGLOBIN 8.6 g/dL (13.6-17.8); IMMATURE GRANULOCYTES 1.5 %; LYMPHOCYTES 26.4 %; MEAN CORPUS HGB CONC 32.1 g/dL (32.0-36.0); MEAN CORPUSCULAR VOLUME 90.2 fL (80-100); MEAN PLATELET VOLUME 9.6 fL (9.2-13.0); MONOCYTES 5.3 %; NEUTROPHILS 61.6 %; NEUTROPHILS ABSOLUTE 8.16 10/3/uL (2.02-8.40); PLATELET COUNT 554 10/3/uL (150-400); RBC DISTRIBUTION WIDTH 15.2 % (12.0-16.0); RED CELL COUNT 2.97 10/6/uL (4.7-6.1); WHITE BLOOD CELLS 13.3 10/3/uL (4.5-10.5)
[2016-05-24 06:31] LABS: MANUAL DIFF NO %
[2016-05-24 06:32] LABS: CALCIUM, SERUM 9.1 MG/DL (8.5-10.4); CHLORIDE, SERUM 109 MMOL/L (96-112); CO2 (CARBON DIOXIDE) 21 MMOL/L (24-34); CREATININE 0.78 MG/DL (0.70-1.30); GFR AFRICAN AMERICAN 109 ML/MIN (>=60); GFR NON AFRICAN AMERICAN 94 ML/MIN (>=60); POTASSIUM, SERUM 4.5 MMOL/L (3.5-5.3); SODIUM, SERUM 141 MMOL/L (135-148)
[2016-05-24 06:33] LABS: BUN (BLOOD UREA NITROGEN) 31 MG/DL (6-23); GLUCOSE, SERUM 157 MG/DL (60-99)
[2016-05-25 17:25] LABS: BASOPHILS 0.5 %; BASOPHILS ABSOLUTE 0.07 10/3/uL (0.0-0.16); EOSINOPHILS 3.6 %; HEMATOCRIT 26.4 % (40.0-51.0); HEMOGLOBIN 8.2 g/dL (13.6-17.8); IMMATURE GRANULOCYTES 0.8 %; IMMATURE GRANULOCYTES ABSOLUTE 0.11 10/3/uL (0.0-0.11); LYMPHOCYTES 18.3 %; LYMPHOCYTES ABSOLUTE 2.57 10/3/uL (0.67-4.30); MEAN CORPUS HGB CONC 31.1 g/dL (32.0-36.0); MEAN CORPUSCULAR VOLUME 90.1 fL (80-100); MEAN PLATELET VOLUME 9.9 fL (9.2-13.0); MONOCYTES 4.1 %; MONOCYTES ABSOLUTE 0.57 10/3/uL (0.21-1.20); NEUTROPHILS 72.7 %; PLATELET COUNT 535 10/3/uL (150-400); RBC DISTRIBUTION WIDTH 14.9 % (12.0-16.0); RED CELL COUNT 2.93 10/6/uL (4.7-6.1)
[2016-05-25 17:26] LABS: MANUAL DIFF NO %
[2016-05-25 17:36] LABS: CALCIUM, SERUM 8.6 MG/DL (8.5-10.4); CHLORIDE, SERUM 105 MMOL/L (96-112); CO2 (CARBON DIOXIDE) 23 MMOL/L (24-34); GFR AFRICAN AMERICAN 103 ML/MIN (>=60); GFR NON AFRICAN AMERICAN 89 ML/MIN (>=60); POTASSIUM, SERUM 4.5 MMOL/L (3.5-5.3); SODIUM, SERUM 137 MMOL/L (135-148)
[2016-05-25 17:37] LABS: BUN (BLOOD UREA NITROGEN) 25 MG/DL (6-23); GLUCOSE, SERUM 117 MG/DL (60-99)
[2016-05-26 04:55] LABS: BUN (BLOOD UREA NITROGEN) 27 MG/DL (6-23); CALCIUM, SERUM 8.8 MG/DL (8.5-10.4); CHLORIDE, SERUM 106 MMOL/L (96-112); CO2 (CARBON DIOXIDE) 21 MMOL/L (24-34); CREATININE 0.81 MG/DL (0.70-1.30); GFR AFRICAN AMERICAN 107 ML/MIN (>=60); GFR NON AFRICAN AMERICAN 93 ML/MIN (>=60); POTASSIUM, SERUM 4.6 MMOL/L (3.5-5.3); SODIUM, SERUM 137 MMOL/L (135-148)
[2016-05-26 05:03] LABS: GLUCOSE, SERUM 170 MG/DL (60-99)
[2016-05-26 05:38] LABS: BASOPHILS 0.5 %; BASOPHILS ABSOLUTE 0.08 10/3/uL (0.0-0.16); EOSINOPHILS 3.2 %; EOSINOPHILS ABSOLUTE 0.47 10/3/uL (0.0-0.53); HEMATOCRIT 26.1 % (40.0-51.0); HEMOGLOBIN 8.3 g/dL (13.6-17.8); IMMATURE GRANULOCYTES 1.1 %; IMMATURE GRANULOCYTES ABSOLUTE 0.16 10/3/uL (0.0-0.11); LYMPHOCYTES 19.4 %; LYMPHOCYTES ABSOLUTE 2.83 10/3/uL (0.67-4.30); MEAN CORPUS HGB CONC 31.8 g/dL (32.0-36.0); MEAN CORPUSCULAR HEMOGLOB 28.6 pg (26.0-34.0); MEAN PLATELET VOLUME 10.1 fL (9.2-13.0); MONOCYTES 4.9 %; MONOCYTES ABSOLUTE 0.72 10/3/uL (0.21-1.20); NEUTROPHILS 70.9 %; NEUTROPHILS ABSOLUTE 10.32 10/3/uL (2.02-8.40); PLATELET COUNT 501 10/3/uL (150-400); RBC DISTRIBUTION WIDTH 14.8 % (12.0-16.0); WHITE BLOOD CELLS 14.6 10/3/uL (4.5-10.5)
[2016-05-26 05:44] LABS: MANUAL DIFF NO %
[2016-09-23] MEDS ORDERED: PROSOURCE PO (09:49)
[2016-09-23] MEDS ORDERED: VITC500 PO (09:49)
[2016-09-23] MEDS ORDERED: INSNOVR SC (09:53)
[2016-09-23] MEDS ORDERED: LIOR10 PO (09:54)
[2016-09-23] MEDS ORDERED: PERCOCET 7.5/321 TAB PO (09:54)
[2016-09-23] MEDS ORDERED: PROTONIX PO (09:55)
[2016-09-23] MEDS ORDERED: NEUR300 PO (09:55)
[2016-09-23] MEDS ORDERED: REG5 PO (09:58)
[2016-09-23] MEDS ORDERED: FLONASE NAS (09:59)
[2016-09-23] MEDS ORDERED: TIMOLOL MAL0.5 % OPH (10:00)
[2016-09-23] MEDS ORDERED: FLORASTOR250 MG PO (10:01)
[2016-09-23] MEDS ORDERED: MIRALAX POWDER1 PKT PO (10:01)
[2016-09-23] MEDS ORDERED: PEP20 PO (10:02)
[2016-09-23] MEDS ORDERED: DITRO5 PO (10:02)
[2016-09-23] MEDS ORDERED: BRIMONIDINE0.2 % OPH (10:03)
[2016-09-23] MEDS ORDERED: PRENAVITE PO (10:04)
[2016-09-23] MEDS ORDERED: AYR SALINE NAS (10:05)
[2016-09-23] MEDS ORDERED: MAGOX4 PO (10:06)
[2016-09-23] MEDS ORDERED: REFRESH OPH SO0.3 ML OPH (10:07)
[2016-09-23] MEDS ORDERED: COZ50 PO (10:07)
[2016-09-23] MEDS ORDERED: LIPITOR10 PO (10:09)
[2016-09-23] MEDS ORDERED: FERROUS SULF325 M1 PO (10:09)
[2016-09-23] MEDS ORDERED: MELA3 PO (10:10)
[2016-09-23] MEDS ORDERED: MYTAB GAS80 MG PO (10:11)
[2016-09-23] MEDS ORDERED: DSS PO ×2 (10:11→10:12)
== END 2016-05-26 21:08 | DRG 660 ==
LOC: SDC/OF 11:29 → 4SO 19:13
PROVIDERS: Surgery; Urology
PROC: 02HV33Z Insertion of Infusion Device into Superior Vena Cava, Percutaneous Approach (ICD-10-PCS; 2016-05-05)
PROC: 4A02X4A Measurement of Cardiac Electrical Activity, Guidance, External Approach (ICD-10-PCS; 2016-05-05)
PROC: 0T1807C Bypass Bilateral Ureters to Ileocutaneous with Autologous Tissue Substitute, Open Approach (ICD-10-PCS; principal; 2016-05-05 15:00)
PROC: 02HV33Z Insertion of Infusion Device into Superior Vena Cava, Percutaneous Approach (ICD-10-PCS; 2016-05-17)
PROC: 4A02X4A Measurement of Cardiac Electrical Activity, Guidance, External Approach (ICD-10-PCS; 2016-05-17)
PROC: 3E0536Z Introduction of Nutritional Substance into Peripheral Artery, Percutaneous Approach (ICD-10-PCS; 2016-05-17)
DX: N31.8 Other neuromuscular dysfunction of bladder (principal); E44.0 Moderate protein-calorie malnutrition; G82.20 Paraplegia, unspecified; I44.1 Atrioventricular block, second degree; K56.0 Paralytic ileus; N39.0 Urinary tract infection, site not specified; N13.6 Pyonephrosis; R33.8 Other retention of urine; Z88.0 Allergy status to penicillin; Z88.2 Allergy status to sulfonamides; Z88.6 Allergy status to analgesic agent; S24.102S Unspecified injury at T2-T6 level of thoracic spinal cord, sequela; X95.9XXS Assault by unspecified firearm discharge, sequela; J44.9 Chronic obstructive pulmonary disease, unspecified; I25.10 Atherosclerotic heart disease of native coronary artery without angina pectoris; Z95.1 Presence of aortocoronary bypass graft; F17.200 Nicotine dependence, unspecified, uncomplicated; Z88.8 Allergy status to other drugs, medicaments and biological substances; Z89.519 Acquired absence of unspecified leg below knee; Z68.23 Body mass index [BMI] 23.0-23.9, adult; Z87.440 Personal history of urinary (tract) infections; K08.89 Other specified disorders of teeth and supporting structures; D63.8 Anemia in other chronic diseases classified elsewhere; M24.452 Recurrent dislocation, left hip
CPT/HCPCS: 36415; 36569; 71010; 74000; 74176; 74250; 80048; 81001; 82330; 82962; 83605; 83735; 84100; 84134; 84478; 85025; 86850; 86900; 86901; 86920; 87040; 87077; 87086; 87186; 87493; 87493-59; 93005; 97162-GP; A9270-GY; C1751; C2617; C9113; J0692; J0694; J1170; J1335; J1580; J2250; J2370; J2405; J2550; J2710; J2765; J2795; J3010; P9045

== ENCOUNTER 2016-09-11 21:17 | Inpatient (IN) | payer BC, OTHER ==
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
--- NOTE | ~2016-09-11 | DS ---
Discharge Summary [facility] [address] [place]. [address] NAME: NANCY JONAS : 50 STATUS : DIS IN PAT#: [id number] AGE: 66 ADM/REG DATE : 09/12/16 MR#: [id number] REPORT SERV DATE: 09/20/16 DICTATED BY: BRANDAN ROMO DATE: 09/19/16 REPORT STATUS : Draft TRANSCRIBED BY: MODL DATE: 09/19/16 ADMISSION DATE: 09/12/2016 DISCHARGE DATE: 09/19/2016 DISCHARGE DIAGNOSES: 1. Metabolic encephalopathy, currently resolved. 2. Staphylococcus aureus and Enterococcus faecalis urinary tract infection. 3. Severe sepsis, now resolved. 4. T4 paraplegia that is chronic. 5. Decubitus wounds of the buttock and the leg. 6. Right above knee amputation. 7. Type 2 diabetes mellitus. 8. Chronic indwelling Lombardo catheter that is suprapubic with a draining wound around it as well. 9. Macroadenoma incidental finding on a CT. No further evaluation at this time. CONSULTANTS DURING THIS HOSPITALIZATION: Neurology. INVASIVE PROCEDURES DURING THIS HOSPITALIZATION: None. BRIEF HISTORY OF PRESENT ILLNESS: The patient is a 66-year-old male with repeated admissions to the hospital with T4 paraplegia and insulin-dependent type 2 diabetes mellitus, came in with increased confusion, found to have a urinary tract infection so he was admitted. For detailed history and physical exam, please see note dictated by Dr. Fabio Glover on 09/12/2016. HOSPITAL COURSE: After being admitted to the hospital, this patient was cared for by Dr. Fran Campos. Please refer to interim summary dictated by Dr. Campos on 09/18/2016. I took over this patient's care on 09/19/2016. This patient was doing relatively well. He was back to his baseline. His wounds were being cared for. The vancomycin which he has been on for day number 7 was decided that he would need a total of 10 days. He can get 3 more days of it through a rotating IV at the snf facility. He is approved to go to a snf facility and he remained stable otherwise and is being discharged in stable condition. DISCHARGE DISPOSITION: To snf facility. DISCHARGE ACTIVITY: As tolerated. DISCHARGE DIET: 1800-calorie [place] [employer] diet. DISCHARGE MEDICATIONS: Vancomycin, pharmacy to provide a fixed dose for the next 3. Lipitor 10 mg once daily, baclofen 10 mg every eight hours, brimonidine eyedrops as directed, Pepcid 20 mg every 12 hours, iron 325 mg once daily, Flonase two sprays each nostril every 12 hours, losartan 50 mg once every morning, Reglan 5 mg three times daily before meals, oxybutynin 5 mg every 12 hours, Protonix 40 mg p.o. at breakfast and supper, Florastor 250 Discharge Summary [address] [address] NAME: NANCY JONAS : 50 STATUS : DIS IN PAT#: [id number] AGE: 66 ADM/REG DATE : 09/12/16 MR#: [id number] REPORT SERV DATE: 09/20/16 DICTATED BY: BRANDAN ROMO DATE: 09/19/16 REPORT STATUS : Draft TRANSCRIBED BY: MILLY DATE: 09/19/16 every 12 hours, melatonin 6 mg once at bedtime, Dewey saline gel drops, Colace 200 mg at bedtime as needed, Dulcolax 20 mg one time scheduled dose, Novolin sliding scale as directed, Zofran 4 mg p.o. every 8 hours p.r.n., MiraLAX 1 packet every 12 hours, GoLYTELY for constipation, Mytab 80 mg every 12 hours p.r.n., gabapentin 300 mg every eight hours, timolol 1 drop every 12 hours in both eyes, multivitamins, refresh eye tears, oxycodone 7.5/325 one tablet every six hours p.r.n. for pain. DISCHARGE FOLLOWUP: With the physicians at snf facility. More than 35 minutes spent planning this patient's discharge, reconciling medications, signing all forms for rehab, and documenting this discharge. DICTATED BY: Sage Anthony/MILLY Brandan Romo M.D. / [id number] CC: Sage Anthony M.D.
--- NOTE | ~2016-09-11 | IDS ---
Interim Discharge Summary [facility] [address] [place]. [address] NAME: NANCY JONAS : 50 STATUS : ADM IN [facility]#: [id number] AGE: 66 ADM/REG DATE : 09/12/16 MR#: [id number] REPORT SERV DATE: 09/19/16 DICTATED BY: DUNCAN JONES DATE: 09/19/16 REPORT STATUS : Draft TRANSCRIBED BY: MODL DATE: 09/19/16 ADMISSION DATE: 09/12/2016 DISCHARGE DATE: Interim summary from 09/12/2016 to 09/18/2016. INTERIM DISCHARGE DIAGNOSES: 1. Septic metabolic encephalopathy, present on arrival. 2. Urinary tract infection with Enterococcus faecalis and methicillin-resistant Staphylococcus aureus, present on arrival. 3. Severe sepsis. 4. T4 paraplegia with acute kidney injury right. 5. Insulin-dependent diabetes type 2. 6. Left leg wound present on arrival. 7. Macroadenoma, incidental finding on CT. Evaluated by Neurology, outpatient neurosurgery followup at discharge and the patient has chronic dysphagia, already has outpatient GI followup for possible dilatation scheduled. CONSULTATIONS: Neurology. HOSPITAL COURSE: Please see H and P for complete details. HISTORY OF PRESENT ILLNESS: Briefly, Mr. Jonas is a very pleasant 66-year-old male with history of T4 paraplegia and insulin-dependent diabetes, who presents after having increased confusion, found to have UTI, started on broad-spectrum antibiotics. Additionally, with 24 hours to meropenem and continued vancomycin due to prior old healing skin lesion from prior suprapubic cath placement and based on prior UTI cultures. The patient had WBC count over 20,000. After 24 hours, the patient was febrile. The patient did have improvement after 24 hours with WBC count decreasing to 14,000, did have isolated re-elevation to 18,000 after discontinuing of meropenem. On day of this interim summary, he has continued the vancomycin day 09/29; however, he still has leukocytosis and monitoring fever profile, but clinically mental status appears to have returned back to his normal. He does have chronic wounds and is having appropriate wound care performed in room. Severe sepsis criteria have also improved with encephalopathy improving, leukocytosis improving but not resolved, and fever profile improving. The patient incidentally for initial presentation for confusion, had CT performed that noted for macroadenoma. This was evaluated by Neurology. No acute intervention required currently, but will need outpatient neurosurgery evaluation at discharge for followup of this irregularity as the patient is currently asymptomatic from current macroadenoma. The patient's course was updated with the patient and family. Case to be resumed by Medicine team in a.. DDN/MILLY Interim Discharge Summary [address] [address] NAME: NANCY JONAS : 50 STATUS : ADM IN PAT#: [id number] AGE: 66 ADM/REG DATE : 09/12/16 MR#: [id number] REPORT SERV DATE: 09/19/16 DICTATED BY: DUNCAN JONES DATE: 09/19/16 REPORT STATUS : Draft TRANSCRIBED BY: MODRosemary DATE: 09/19/16 Duncan Jones MD / [id number] CC: MD Ham Mckinney M.D.
--- NOTE | ~2016-09-11 | HP ---
History And Physical [facility] [address] [place]. [address] NAME: NANCY JONAS : 50 STATUS : ADM IN [facility]#: [id number] AGE: 66 ADM/REG DATE : 09/12/16 MR#: [id number] REPORT SERV DATE: 09/12/16 DICTATED BY: FABIO HURTADO DATE: 09/12/16 REPORT STATUS : Draft TRANSCRIBED BY: MODL DATE: 09/12/16 DATE OF ADMISSION: 09/12/2016 CHIEF COMPLAINT: Altered mental status. HISTORY OF PRESENT ILLNESS: This is a 66-year-old male who is a resident at [facility], has a history of T7 paraplegia, diabetes, right above knee amputation who presents to the emergency room at [facility] with the above-mentioned complaint. History is obtained from the patient's records, speaking with the patient's sister, and reviewing data available on the [employer] system. According to available data, Mr. Jonas had been having altered mental status and confusion while at the facility. He has had several such episodes, where he had severe infection or sepsis, and he was sent here to be evaluated. In the emergency room, initial workup revealed he had a urinary tract infection and sepsis along with hyperkalemia, hyperglycemia, and Hospitalist Service is asked to admit him for further evaluation and treatment. At the time of my evaluation, he continued to be encephalopathic. His sister who visits him occasionally was able to give some information. No other elaborate information was available. Apparently, there was no mention of any chest pain or palpitations. He did not have any cough recently. He has not had any recent history of nausea or vomiting. No other relevant history is available at this time. He has not had any falls. PAST MEDICAL HISTORY: Significant for history of T7 paraplegia, diabetes mellitus type 2, decubitus ulcers in the left leg and history of sacral decubitus ulcers, history of right above-knee amputation as well. He also has history of Clostridium difficile colitis in the past. SOCIAL HISTORY: He does not smoke, drink, or use recreational drugs. FAMILY HISTORY: Noncontributory. MEDICATIONS: At home were reviewed by me in the chart today and reordered by me. REVIEW OF SYSTEMS: As in history of present illness. All other systems were reviewed in detail and quite unremarkable. PHYSICAL EXAMINATION: GENERAL: This is a 66-year-old male, who is not alert, oriented to time, place, and person. EYES: His pupils are equal, reacting to light and accommodating. External ocular muscles are intact. Membranes are moist and pink. Sclerae are nonicteric. NECK: Supple with no jugular venous distention, lymphadenopathy, or thyromegaly. History And Physical [address] [id number] NAME: NANCY JONAS : 50 STATUS : ADM IN [facility]#: [id number] AGE: 66 ADM/REG DATE : 09/12/16 MR#: [id number] REPORT SERV DATE: 09/12/16 DICTATED BY: FABIO HURTADO DATE: 09/12/16 REPORT STATUS : Draft TRANSCRIBED BY: MILLY DATE: 09/12/16 LUNGS: Clear to auscultation with no wheezes, rubs, or crackles. HEART: Heart sounds are regular with no murmurs, rubs, or gallops. ABDOMEN: Soft, nontender. EXTREMITIES: Showed a right above-knee amputation. The left lower extremity is in a boot for decubitus ulcer. NEURO: Unobtainable due to the patient's current encephalopathy. VITAL SIGNS: Today show a temperature of 98.4, pulse 101, respirations 16 a minute, blood pressure 75/55, oxygen saturations are 94% breathing 2 L of oxygen via nasal cannula. LABORATORY DATA: Reviewed on the [employer] system showed a sodium of 129, potassium 6.0, chloride 96, and CO2 of 26, BUN was 35 with a creatinine of 1.25, blood glucose was 351. His albumin was 2.6, total protein 9.2, alkaline phosphatase was 202, ALT and AST were within normal limits. Lipase was 106. His lactate was 1.7 today. [place] [address], hemoglobin 10, hematocrit 30.8, and platelet count was 461,000. Urinalysis showed large leukocyte esterase, nitrite was negative. There were 37 wbc, 69 rbc's and occasional bacteria. Chest x-ray films were reviewed by me on the PACS today as well as CT scan of the brain. Per my interpretation, the chest x-ray showed previous sternotomy and no cardiomegaly. No pulmonary infiltrates or effusions. CT of the brain report was also reviewed on the PACS today. There is reported 2 cm lesion in sella turcica, it is recommended to get a MRI of the brain. IMPRESSION: 1. Altered mental status. 2. Urinary tract infection. 3. Sepsis. 4. Hyperkalemia. 5. Diabetes mellitus type 2 with hyperglycemia. 6. Ab[address] CT scan of the brain. 7. History of T7 paraplegia. 8. Hypotension. 9. Decubitus ulcer of the left leg. 10.Right above-knee amputation. 11.History of Clostridium difficile colitis. PLAN: We will admit Mr. Jonas to the Hospitalist Service with telemetry. We will start him on empiric IV antibiotics for now, go ahead and get his lactate, procalcitonin, and cortisol levels. His hypotension was responsive to fluid challenges. We will continue and do the volume resuscitation. He may need intravenous hydrocortisone. The patient was given half an amp of D50 in the ER along with 10 units of insulin. We will go ahead and check his potassium now and give him some Kayexalate as well. We will start him on NovoLog insulin per sliding scale for blood sugar control on a level 3. We will get Wound Care to evaluate decubitus ulcer and offer advice and management. He will be placed on unfractionated heparin for DVT prophylaxis while here as well. Please see today's orders for details. I have discussed the above plans with the patient's sister, her questions were answered, and she is agreeable to the above recommendations. The patient is a full code. History And Physical [address] [address] NAME: NANCY JONAS : 50 STATUS : ADM IN [facility]#: [id number] AGE: 66 ADM/REG DATE : 09/12/16 MR#: [id number] REPORT SERV DATE: 09/12/16 DICTATED BY: FABIO UHRTADO DATE: 09/12/16 REPORT STATUS : Draft TRANSCRIBED BY: MILLY DATE: 09/12/16 /MILLY Fabio Hurtado M.D. / [id number] CC: Sage Bermeo M.D.
[2016-09-11 22:35] LABS: MEAN CORPUS HGB CONC 32.5 g/dL (32.0-36.0); MEAN CORPUSCULAR HEMOGLOB 27.5 pg (26.0-34.0); MEAN PLATELET VOLUME 9.6 fL (9.2-13.0); PLATELET COUNT 461 10/3/uL (150-400); RBC DISTRIBUTION WIDTH 15.6 % (12.0-16.0)
[2016-09-11 22:36] LABS: INTERNATIONAL NORMAL RATI 1.2 UNITS (-)
[2016-09-11 22:37] LABS: PARTIAL THROMBO TIME 39.4 SEC (22.5-37.2)
[2016-09-11 22:38] LABS: ER CBC TAT 0 Hrs 21 Mins; HEMATOCRIT 30.8 % (40.0-51.0); MANUAL DIFF YES %; MEAN CORPUSCULAR VOLUME 84.6 fL (80-100); RED CELL COUNT 3.64 10/6/uL (4.7-6.1); WHITE BLOOD CELLS 25.3 10/3/uL (4.5-10.5)
[2016-09-11 22:46] LABS: ALBUMIN 2.6 G/DL (3.5-5.0); CO2 (CARBON DIOXIDE) 26 MMOL/L (24-34); SGPT(ALT) 18 U/L (5-65); SODIUM, SERUM 129 MMOL/L (135-148); TOTAL BILIRUBIN 0.5 MG/DL (0-1.2)
[2016-09-11 22:47] LABS: A/G RATIO 0.4 (0.7-1.9); ALKALINE PHOSPHATASE 202 U/L (45-117); BUN (BLOOD UREA NITROGEN) 35 MG/DL (6-23); CALCIUM, SERUM 9.4 MG/DL (8.5-10.4); CHLORIDE, SERUM 96 MMOL/L (96-112); CREATININE 1.25 MG/DL (0.70-1.30); GFR AFRICAN AMERICAN 69 ML/MIN (>=60); GFR NON AFRICAN AMERICAN 60 ML/MIN (>=60); GLOBULIN 6.6 G/DL (2.5-4.1); GLUCOSE, SERUM 351 MG/DL (60-99); TOTAL PROTEIN 9.2 G/DL (6.0-8.5)
[2016-09-11 22:48] LABS: LACTATE 1.7 MMOL/L (0.3-2.4); SGOT(AST) 38 U/L (5-40)
[2016-09-11 22:50] LABS: BAND NEUTROPHILS 26 %; EOSINOPHILS 2 %; EOSINOPHILS ABSOLUTE (CALC) 0.51 10/3/uL (0.0-0.53); ER DIFF TAT 0 Hrs 33 Mins; LYMPHOCYTES 16 %; LYMPHOCYTES ABSOLUTE (CALC) 4.05 10/3/uL (0.67-4.30); MONOCYTES 4 %; MONOCYTES ABSOLUTE (CALC) 1.01 10/3/uL (0.21-1.20); NEUTROPHILS ABSOLUTE (CALC) 19.73 10/3/uL (2.02-8.40); OVALOCYTES 1+ (3-10/OIF) (0-2/OIF); PLATELET ESTIMATE SLT INC (ADEQUATE); SEGMENTED NEUTROPHIL (0) 52 %; TOTAL NUCLEATED CELLS 100
[2016-09-11 22:59] LABS: ASCORBIC ACID (UR NOT ORDER) NEG (NEG); BILIRUBIN, URINE NEGATIVE (NEG); KETONE, URINE NEGATIVE (NEG); LEUKOCYTE ESTERASE(NOT OR LARGE (NEG); NITRITE (URINE) NEG (NEG); WBC (NOT ORDERED) (RFLEX) 37 (0-5)
[2016-09-12] MEDS ORDERED: INSNOVR (00:37)
[2016-09-12] MEDS ORDERED: NEUR300 PO (00:38)
[2016-09-12] MEDS ORDERED: PROTONIX PO (00:38)
[2016-09-12] MEDS ORDERED: FLONASE NAS (00:39)
[2016-09-12] MEDS ORDERED: REG5 PO (00:39)
[2016-09-12] MEDS ORDERED: TIMOLOL MAL0.5 % OPH (00:41)
[2016-09-12] MEDS ORDERED: ZOFRAN4 PO (00:42)
[2016-09-12] MEDS ORDERED: ROCEPH IM (00:44)
[2016-09-12] MEDS ORDERED: FERROUS SULF325 M1 PO (00:58)
[2016-09-12] MEDS ORDERED: PRENAVITE PO (00:59)
[2016-09-12] MEDS ORDERED: BIST PO (00:59)
[2016-09-12] MEDS ORDERED: GOLYTEL1 PO (01:00)
[2016-09-12] MEDS ORDERED: FLORASTOR250 MG PO (01:01)
[2016-09-12] MEDS ORDERED: DITRO5 PO (01:01)
[2016-09-12] MEDS ORDERED: BRIMONIDINE0.2 % OPH (01:02)
[2016-09-12] MEDS ORDERED: PEP20 PO (01:02)
[2016-09-12] MEDS ORDERED: MIRALAX POWDER1 PKT PO (01:04)
[2016-09-12] MEDS ORDERED: REFRESH OPTIVE OPH (01:05)
[2016-09-12] MEDS ORDERED: AYR SALINE NAS (01:07)
[2016-09-12] MEDS ORDERED: COZ50 PO (01:07)
[2016-09-12] MEDS ORDERED: LIPITOR10 PO (01:08)
[2016-09-12] MEDS ORDERED: MELA3 PO (01:08)
[2016-09-12] MEDS ORDERED: MYTAB GAS80 MG PO (01:09)
[2016-09-12] MEDS ORDERED: DSS PO (01:09)
[2016-09-12] MEDS ORDERED: PERCOCET 7.5/321 TAB PO (01:10)
[2016-09-12] MEDS ORDERED: LIOR10 PO (01:10)
[2016-09-12 07:25] LABS: PROCALCITONIN 1.05 ng/mL (<0.5)
[2016-09-12 08:32] LABS: BASOPHILS 0.2 %; BASOPHILS ABSOLUTE 0.04 10/3/uL (0.0-0.16); EOSINOPHILS 0.2 %; EOSINOPHILS ABSOLUTE 0.05 10/3/uL (0.0-0.53); HEMATOCRIT 31.6 % (40.0-51.0); HEMOGLOBIN 10.1 g/dL (13.6-17.8); IMMATURE GRANULOCYTES 0.5 %; IMMATURE GRANULOCYTES ABSOLUTE 0.12 10/3/uL (0.0-0.11); LYMPHOCYTES 7.1 %; LYMPHOCYTES ABSOLUTE 1.77 10/3/uL (0.67-4.30); MANUAL DIFF NO %; MEAN CORPUSCULAR VOLUME 84.5 fL (80-100); MEAN PLATELET VOLUME 9.9 fL (9.2-13.0); MONOCYTES 5.5 %; MONOCYTES ABSOLUTE 1.38 10/3/uL (0.21-1.20); NEUTROPHILS 86.5 %; NEUTROPHILS ABSOLUTE 21.67 10/3/uL (2.02-8.40); PLATELET COUNT 493 10/3/uL (150-400); RBC DISTRIBUTION WIDTH 15.6 % (12.0-16.0); RED CELL COUNT 3.74 10/6/uL (4.7-6.1)
[2016-09-12 08:40] LABS: CALCIUM, SERUM 9.6 MG/DL (8.5-10.4); CHLORIDE, SERUM 100 MMOL/L (96-112); CO2 (CARBON DIOXIDE) 25 MMOL/L (24-34); CREATININE 1.23 MG/DL (0.70-1.30); GFR AFRICAN AMERICAN 70 ML/MIN (>=60); GFR NON AFRICAN AMERICAN 61 ML/MIN (>=60); GLUCOSE, SERUM 321 MG/DL (60-99); POTASSIUM, SERUM 4.8 MMOL/L (3.5-5.3); SODIUM, SERUM 132 MMOL/L (135-148)
[2016-09-12 08:43] LABS: BUN (BLOOD UREA NITROGEN) 30 MG/DL (6-23); PHOSPHORUS, SERUM 3.6 MG/DL (2.5-4.5)
[2016-09-12 08:50] LABS: BAND NEUTROPHILS 20 %; BASOPHILS 1 %; BASOPHILS ABSOLUTE (CALC) 0.25 10/3/uL (0.0-0.16); LYMPHOCYTES 14 %; MONOCYTES 5 %; MONOCYTES ABSOLUTE (CALC) 1.25 10/3/uL (0.21-1.20); PLATELET ESTIMATE SLT INC (ADEQUATE); SEGMENTED NEUTROPHIL (0) 60 %; TOTAL NUCLEATED CELLS 100
[2016-09-12 08:51] LABS: RBC MORPHOLOGY NORM (NORMAL)
[2016-09-12 14:10] LABS: LACTATE 4.3 MMOL/L (0.3-2.4)
[2016-09-13 06:56] LABS: HEMATOCRIT 29.1 % (40.0-51.0); HEMOGLOBIN 9.2 g/dL (13.6-17.8); MEAN CORPUS HGB CONC 31.6 g/dL (32.0-36.0); MEAN CORPUSCULAR HEMOGLOB 26.7 pg (26.0-34.0); MEAN CORPUSCULAR VOLUME 84.6 fL (80-100); MEAN PLATELET VOLUME 9.1 fL (9.2-13.0); PLATELET COUNT 472 10/3/uL (150-400); RBC DISTRIBUTION WIDTH 15.8 % (12.0-16.0); RED CELL COUNT 3.44 10/6/uL (4.7-6.1)
[2016-09-13 06:59] LABS: MANUAL DIFF YES %; WHITE BLOOD CELLS 25.4 10/3/uL (4.5-10.5)
[2016-09-13 07:04] LABS: CALCIUM, SERUM 9.1 MG/DL (8.5-10.4); CHLORIDE, SERUM 106 MMOL/L (96-112); CO2 (CARBON DIOXIDE) 28 MMOL/L (24-34); POTASSIUM, SERUM 3.9 MMOL/L (3.5-5.3)
[2016-09-13 07:05] LABS: BUN (BLOOD UREA NITROGEN) 19 MG/DL (6-23); GFR AFRICAN AMERICAN 114 ML/MIN (>=60); GFR NON AFRICAN AMERICAN 98 ML/MIN (>=60); GLUCOSE, SERUM 105 MG/DL (60-99); SODIUM, SERUM 140 MMOL/L (135-148)
[2016-09-13 07:26] LABS: EOSINOPHILS 1 %; EOSINOPHILS ABSOLUTE (CALC) 0.25 10/3/uL (0.0-0.53); LYMPHOCYTES 6 %; LYMPHOCYTES ABSOLUTE (CALC) 1.52 10/3/uL (0.67-4.30); MONOCYTES 6 %; MONOCYTES ABSOLUTE (CALC) 1.52 10/3/uL (0.21-1.20); PLATELET ESTIMATE SLT INC (ADEQUATE); RBC MORPHOLOGY NORM (NORMAL); SEGMENTED NEUTROPHIL (0) 87 %; TOTAL NUCLEATED CELLS 100
[2016-09-14 07:41] LABS: BASOPHILS 0.2 %; BASOPHILS ABSOLUTE 0.03 10/3/uL (0.0-0.16); EOSINOPHILS 2.5 %; EOSINOPHILS ABSOLUTE 0.46 10/3/uL (0.0-0.53); HEMATOCRIT 27.4 % (40.0-51.0); HEMOGLOBIN 8.6 g/dL (13.6-17.8); IMMATURE GRANULOCYTES 0.5 %; IMMATURE GRANULOCYTES ABSOLUTE 0.09 10/3/uL (0.0-0.11); LYMPHOCYTES 12.3 %; LYMPHOCYTES ABSOLUTE 2.22 10/3/uL (0.67-4.30); MEAN CORPUS HGB CONC 31.4 g/dL (32.0-36.0); MEAN CORPUSCULAR HEMOGLOB 26.6 pg (26.0-34.0); MEAN CORPUSCULAR VOLUME 84.8 fL (80-100); MEAN PLATELET VOLUME 9.3 fL (9.2-13.0); MONOCYTES 5.1 %; MONOCYTES ABSOLUTE 0.92 10/3/uL (0.21-1.20); NEUTROPHILS 79.4 %; NEUTROPHILS ABSOLUTE 14.37 10/3/uL (2.02-8.40); PLATELET COUNT 450 10/3/uL (150-400); RBC DISTRIBUTION WIDTH 15.6 % (12.0-16.0); RED CELL COUNT 3.23 10/6/uL (4.7-6.1); WHITE BLOOD CELLS 18.1 10/3/uL (4.5-10.5)
[2016-09-14 07:44] LABS: MANUAL DIFF NO %
[2016-09-14 07:52] LABS: CALCIUM, SERUM 8.7 MG/DL (8.5-10.4); CHLORIDE, SERUM 105 MMOL/L (96-112); CREATININE 0.58 MG/DL (0.70-1.30); GFR AFRICAN AMERICAN 123 ML/MIN (>=60); GFR NON AFRICAN AMERICAN 106 ML/MIN (>=60); SODIUM, SERUM 137 MMOL/L (135-148)
[2016-09-14 07:55] LABS: BUN (BLOOD UREA NITROGEN) 13 MG/DL (6-23); CO2 (CARBON DIOXIDE) 23 MMOL/L (24-34); GLUCOSE, SERUM 140 MG/DL (60-99); POTASSIUM, SERUM 4.1 MMOL/L (3.5-5.3)
[2016-09-14 08:32] LABS: PROCALCITONIN 0.58 ng/mL (<0.5)
[2016-09-15 06:19] LABS: BASOPHILS 0.3 %; BASOPHILS ABSOLUTE 0.05 10/3/uL (0.0-0.16); EOSINOPHILS 2.6 %; EOSINOPHILS ABSOLUTE 0.38 10/3/uL (0.0-0.53); HEMATOCRIT 29.1 % (40.0-51.0); HEMOGLOBIN 9.1 g/dL (13.6-17.8); IMMATURE GRANULOCYTES 0.7 %; LYMPHOCYTES 18.4 %; LYMPHOCYTES ABSOLUTE 2.69 10/3/uL (0.67-4.30); MEAN CORPUS HGB CONC 31.3 g/dL (32.0-36.0); MEAN CORPUSCULAR HEMOGLOB 26.6 pg (26.0-34.0); MEAN CORPUSCULAR VOLUME 85.1 fL (80-100); MEAN PLATELET VOLUME 9.4 fL (9.2-13.0); MONOCYTES 5.5 %; MONOCYTES ABSOLUTE 0.81 10/3/uL (0.21-1.20); NEUTROPHILS 72.5 %; PLATELET COUNT 517 10/3/uL (150-400); RBC DISTRIBUTION WIDTH 15.3 % (12.0-16.0); RED CELL COUNT 3.42 10/6/uL (4.7-6.1); WHITE BLOOD CELLS 14.6 10/3/uL (4.5-10.5)
[2016-09-15 06:20] LABS: MANUAL DIFF NO %
[2016-09-15 06:29] LABS: BUN (BLOOD UREA NITROGEN) 12 MG/DL (6-23); CALCIUM, SERUM 8.9 MG/DL (8.5-10.4); CHLORIDE, SERUM 107 MMOL/L (96-112); CO2 (CARBON DIOXIDE) 25 MMOL/L (24-34); CREATININE 0.59 MG/DL (0.70-1.30); GFR AFRICAN AMERICAN 122 ML/MIN (>=60); GFR NON AFRICAN AMERICAN 106 ML/MIN (>=60); POTASSIUM, SERUM 3.8 MMOL/L (3.5-5.3); SODIUM, SERUM 137 MMOL/L (135-148)
[2016-09-15 06:30] LABS: GLUCOSE, SERUM 76 MG/DL (60-99)
[2016-09-15 14:49] LABS: VANCOMYCIN TROUGH 16.5 MCG/ML (10.0-20.0)
[2016-09-15 18:03] LABS: PROLACTIN 20.9 NG/ML (2.5-17.4); T4 (THYROXINE) TOTAL 8.1 MCG/DL (4.5-12.0)
[2016-09-15 18:04] LABS: ULTRASENSITIVE TSH 1.47 MCIU/ML (0.358-3.740)
[2016-09-16 07:45] LABS: BASOPHILS 0.3 %; BASOPHILS ABSOLUTE 0.04 10/3/uL (0.0-0.16); EOSINOPHILS 2.3 %; EOSINOPHILS ABSOLUTE 0.34 10/3/uL (0.0-0.53); HEMATOCRIT 27.3 % (40.0-51.0); HEMOGLOBIN 8.7 g/dL (13.6-17.8); IMMATURE GRANULOCYTES 0.7 %; IMMATURE GRANULOCYTES ABSOLUTE 0.11 10/3/uL (0.0-0.11); LYMPHOCYTES 16.5 %; LYMPHOCYTES ABSOLUTE 2.43 10/3/uL (0.67-4.30); MEAN CORPUS HGB CONC 31.9 g/dL (32.0-36.0); MEAN CORPUSCULAR HEMOGLOB 26.9 pg (26.0-34.0); MEAN CORPUSCULAR VOLUME 84.3 fL (80-100); MEAN PLATELET VOLUME 9.1 fL (9.2-13.0); MONOCYTES ABSOLUTE 0.88 10/3/uL (0.21-1.20); NEUTROPHILS 74.2 %; NEUTROPHILS ABSOLUTE 10.97 10/3/uL (2.02-8.40); PLATELET COUNT 499 10/3/uL (150-400); RBC DISTRIBUTION WIDTH 15.2 % (12.0-16.0); RED CELL COUNT 3.24 10/6/uL (4.7-6.1); WHITE BLOOD CELLS 14.8 10/3/uL (4.5-10.5)
[2016-09-16 07:48] LABS: MANUAL DIFF NO %
[2016-09-16 08:00] LABS: BUN (BLOOD UREA NITROGEN) 13 MG/DL (6-23); CHLORIDE, SERUM 105 MMOL/L (96-112); CO2 (CARBON DIOXIDE) 23 MMOL/L (24-34); CREATININE 0.67 MG/DL (0.70-1.30); GFR AFRICAN AMERICAN 116 ML/MIN (>=60); GFR NON AFRICAN AMERICAN 100 ML/MIN (>=60); POTASSIUM, SERUM 4.1 MMOL/L (3.5-5.3); SGOT(AST) 9 U/L (5-40); SGPT(ALT) 9 U/L (5-65); SODIUM, SERUM 136 MMOL/L (135-148); TOTAL BILIRUBIN 0.2 MG/DL (0-1.2)
[2016-09-16 08:01] LABS: A/G RATIO 0.4 (0.7-1.9); ALBUMIN 1.9 G/DL (3.5-5.0); ALKALINE PHOSPHATASE 121 U/L (45-117); CALCIUM, SERUM 8.5 MG/DL (8.5-10.4); GLOBULIN 5.2 G/DL (2.5-4.1); GLUCOSE, SERUM 136 MG/DL (60-99); TOTAL PROTEIN 7.1 G/DL (6.0-8.5)
[2016-09-17 04:37] LABS: BUN (BLOOD UREA NITROGEN) 15 MG/DL (6-23); CALCIUM, SERUM 9.1 MG/DL (8.5-10.4); CHLORIDE, SERUM 101 MMOL/L (96-112); CO2 (CARBON DIOXIDE) 27 MMOL/L (24-34); CREATININE 0.58 MG/DL (0.70-1.30); GFR AFRICAN AMERICAN 123 ML/MIN (>=60); GFR NON AFRICAN AMERICAN 106 ML/MIN (>=60); GLUCOSE, SERUM 122 MG/DL (60-99); POTASSIUM, SERUM 4.2 MMOL/L (3.5-5.3); SODIUM, SERUM 135 MMOL/L (135-148)
[2016-09-17 04:41] LABS: BASOPHILS 0.2 %; BASOPHILS ABSOLUTE 0.04 10/3/uL (0.0-0.16); EOSINOPHILS 2.2 %; HEMATOCRIT 29.1 % (40.0-51.0); HEMOGLOBIN 9.2 g/dL (13.6-17.8); IMMATURE GRANULOCYTES 0.9 %; IMMATURE GRANULOCYTES ABSOLUTE 0.16 10/3/uL (0.0-0.11); LYMPHOCYTES ABSOLUTE 3.16 10/3/uL (0.67-4.30); MANUAL DIFF NO %; MEAN CORPUS HGB CONC 31.6 g/dL (32.0-36.0); MEAN CORPUSCULAR HEMOGLOB 26.9 pg (26.0-34.0); MEAN CORPUSCULAR VOLUME 85.1 fL (80-100); MEAN PLATELET VOLUME 9.2 fL (9.2-13.0); MONOCYTES 6.6 %; MONOCYTES ABSOLUTE 1.23 10/3/uL (0.21-1.20); NEUTROPHILS 73.1 %; NEUTROPHILS ABSOLUTE 13.59 10/3/uL (2.02-8.40); PLATELET COUNT 571 10/3/uL (150-400); RBC DISTRIBUTION WIDTH 15.3 % (12.0-16.0); RED CELL COUNT 3.42 10/6/uL (4.7-6.1); WHITE BLOOD CELLS 18.6 10/3/uL (4.5-10.5)
[2016-09-18 04:40] LABS: BASOPHILS 0.3 %; BASOPHILS ABSOLUTE 0.04 10/3/uL (0.0-0.16); BUN (BLOOD UREA NITROGEN) 16 MG/DL (6-23); CALCIUM, SERUM 9.3 MG/DL (8.5-10.4); CHLORIDE, SERUM 101 MMOL/L (96-112); CO2 (CARBON DIOXIDE) 26 MMOL/L (24-34); CREATININE 0.63 MG/DL (0.70-1.30); EOSINOPHILS 2.7 %; EOSINOPHILS ABSOLUTE 0.42 10/3/uL (0.0-0.53); GFR AFRICAN AMERICAN 119 ML/MIN (>=60); GFR NON AFRICAN AMERICAN 103 ML/MIN (>=60); GLUCOSE, SERUM 137 MG/DL (60-99); HEMOGLOBIN 9.1 g/dL (13.6-17.8); IMMATURE GRANULOCYTES 0.8 %; IMMATURE GRANULOCYTES ABSOLUTE 0.13 10/3/uL (0.0-0.11); LYMPHOCYTES 17.4 %; LYMPHOCYTES ABSOLUTE 2.74 10/3/uL (0.67-4.30); MEAN CORPUS HGB CONC 32.5 g/dL (32.0-36.0); MEAN CORPUSCULAR HEMOGLOB 27.7 pg (26.0-34.0); MEAN CORPUSCULAR VOLUME 85.4 fL (80-100); MEAN PLATELET VOLUME 8.9 fL (9.2-13.0); MONOCYTES ABSOLUTE 0.95 10/3/uL (0.21-1.20); NEUTROPHILS 72.8 %; NEUTROPHILS ABSOLUTE 11.43 10/3/uL (2.02-8.40); PLATELET COUNT 589 10/3/uL (150-400); POTASSIUM, SERUM 4.2 MMOL/L (3.5-5.3); RBC DISTRIBUTION WIDTH 15.3 % (12.0-16.0); RED CELL COUNT 3.28 10/6/uL (4.7-6.1); SODIUM, SERUM 135 MMOL/L (135-148); WHITE BLOOD CELLS 15.7 10/3/uL (4.5-10.5)
[2016-09-18 04:44] LABS: MANUAL DIFF NO %
[2016-09-18 06:13] LABS: PROCALCITONIN 0.25 ng/mL (<0.5)
[2016-09-18 20:13] LABS: INSULIN-LIKE GROWTH FACTOR 1 44.74 ng/mL (60-220)
[2016-09-19 01:38] LABS: BUN (BLOOD UREA NITROGEN) 19 MG/DL (6-23); CALCIUM, SERUM 8.9 MG/DL (8.5-10.4); CHLORIDE, SERUM 100 MMOL/L (96-112); CO2 (CARBON DIOXIDE) 24 MMOL/L (24-34); CREATININE 0.83 MG/DL (0.70-1.30); GFR AFRICAN AMERICAN 106 ML/MIN (>=60); GFR NON AFRICAN AMERICAN 92 ML/MIN (>=60); POTASSIUM, SERUM 4.6 MMOL/L (3.5-5.3); SODIUM, SERUM 133 MMOL/L (135-148); VANCOMYCIN TROUGH 17.6 MCG/ML (10.0-20.0)
[2016-09-19 01:39] LABS: GLUCOSE, SERUM 191 MG/DL (60-99)
[2016-09-19 06:11] LABS: HEMATOCRIT 28.6 % (40.0-51.0); MEAN CORPUS HGB CONC 31.5 g/dL (32.0-36.0); MEAN CORPUSCULAR VOLUME 85.9 fL (80-100); MEAN PLATELET VOLUME 8.9 fL (9.2-13.0); PLATELET COUNT 618 10/3/uL (150-400); RBC DISTRIBUTION WIDTH 15.5 % (12.0-16.0); RED CELL COUNT 3.33 10/6/uL (4.7-6.1); WHITE BLOOD CELLS 14.2 10/3/uL (4.5-10.5)
[2016-09-19 06:12] LABS: MANUAL DIFF YES %
[2016-09-19 06:36] LABS: BAND NEUTROPHILS 6 %; EOSINOPHILS 4 %; EOSINOPHILS ABSOLUTE (CALC) 0.57 10/3/uL (0.0-0.53); GIANT PLATELET OCC; IMMATURE GRANS ABSOLUTE (CALC) 0.14 10/3/uL (0.0-0.11); LYMPHOCYTES 19 %; METAMYELOCYTES 1 %; MONOCYTES 9 %; MONOCYTES ABSOLUTE (CALC) 1.28 10/3/uL (0.21-1.20); NEUTROPHILS ABSOLUTE (CALC) 9.51 10/3/uL (2.02-8.40); PLATELET ESTIMATE INC (ADEQUATE); SEGMENTED NEUTROPHIL (0) 61 %; TOTAL NUCLEATED CELLS 100; TOXIC GRANULATION 1+
[2016-09-23] MEDS ORDERED: PROSOURCE PO (09:49)
[2016-09-23] MEDS ORDERED: VITC500 PO (09:49)
[2016-09-23] MEDS ORDERED: INSNOVR SC (09:53)
[2016-09-23] MEDS ORDERED: LIOR10 PO (09:54)
[2016-09-23] MEDS ORDERED: PERCOCET 7.5/321 TAB PO (09:54)
[2016-09-23] MEDS ORDERED: NEUR300 PO (09:55)
[2016-09-23] MEDS ORDERED: PROTONIX PO (09:55)
[2016-09-23] MEDS ORDERED: REG5 PO (09:58)
[2016-09-23] MEDS ORDERED: FLONASE NAS (09:59)
[2016-09-23] MEDS ORDERED: TIMOLOL MAL0.5 % OPH (10:00)
[2016-09-23] MEDS ORDERED: FLORASTOR250 MG PO (10:01)
[2016-09-23] MEDS ORDERED: MIRALAX POWDER1 PKT PO (10:01)
[2016-09-23] MEDS ORDERED: PEP20 PO (10:02)
[2016-09-23] MEDS ORDERED: DITRO5 PO (10:02)
[2016-09-23] MEDS ORDERED: BRIMONIDINE0.2 % OPH (10:03)
[2016-09-23] MEDS ORDERED: PRENAVITE PO (10:04)
[2016-09-23] MEDS ORDERED: AYR SALINE NAS (10:05)
[2016-09-23] MEDS ORDERED: MAGOX4 PO (10:06)
[2016-09-23] MEDS ORDERED: COZ50 PO (10:07)
[2016-09-23] MEDS ORDERED: REFRESH OPH SO0.3 ML OPH (10:07)
[2016-09-23] MEDS ORDERED: LIPITOR10 PO (10:09)
[2016-09-23] MEDS ORDERED: FERROUS SULF325 M1 PO (10:09)
[2016-09-23] MEDS ORDERED: MELA3 PO (10:10)
[2016-09-23] MEDS ORDERED: DSS PO ×2 (10:11→10:12)
[2016-09-23] MEDS ORDERED: MYTAB GAS80 MG PO (10:11)
== END 2016-09-19 17:56 | DRG 871 ==
LOC: ER 21:17 → 2SO 09-12 03:51
PROVIDERS: Emergency Medicine; Internal Medicine Pulmonary Disease; Nurse Practitioner; Student in an Organized Health Care Education/Training Program
DX: A41.9 Sepsis, unspecified organism (principal); G93.41 Metabolic encephalopathy; N17.9 Acute kidney failure, unspecified; I95.9 Hypotension, unspecified; G82.20 Paraplegia, unspecified; E87.1 Hypo-osmolality and hyponatremia; L89.899 Pressure ulcer of other site, unspecified stage; E11.65 Type 2 diabetes mellitus with hyperglycemia; Z89.611 Acquired absence of right leg above knee; N39.0 Urinary tract infection, site not specified; R65.20 Severe sepsis without septic shock; E87.5 Hyperkalemia; E83.42 Hypomagnesemia; E11.9 Type 2 diabetes mellitus without complications; D35.2 Benign neoplasm of pituitary gland; B95.2 Enterococcus as the cause of diseases classified elsewhere; B95.62 Methicillin resistant Staphylococcus aureus infection as the cause of diseases classified elsewhere
CPT/HCPCS: 70450; 70553; 71010; 80048; 80053; 80202; 81001; 82024; 82533; 82962; 83036; 83605; 83690; 83735; 84100; 84145; 84146; 84305; 84403; 84436; 84443; 85025; 85610; 85730; 87040; 87070; 87077; 87086; 87186; 87205; 93005; 94640; 96374; 96375; 97162-GP; 99291; A9270-GY; A9577; G8978-CN-GP; G8979-CL-GP; J0692; J2185; J2405; J2550; J3370